=== PATIENT | male | born 1995 | race Caucasian/White ===

== ENCOUNTER 2017-11-29 16:09 | Emergency (ER) | END 2017-11-29 18:25 | disposition home or self-care (01) ==

== ENCOUNTER 2017-12-11 22:28 | Emergency (ER) | END 2017-12-12 01:13 | disposition home or self-care (01) ==

== ENCOUNTER → 2017-12-25 | Emergency (ER) | END | disposition home or self-care (01) ==

== ENCOUNTER 2018-10-07 09:13 | Emergency (ER) | payer MEDICAID ==
[~2018-10-07] VITALS: Wt 78.0 kg
[~2018-10-07 09:13] MED LIST: ACET500C5 PO; CYCL10TA7 PO; DIAZ5TAB PO; FAMO-96 PO; MED4DP PO; NAPR-985 PO; TRAM50TA2 PO
[2018-10-07] MEDS ORDERED: HYDROCODONE/APAP (5/325) TAB PO ONE (10:00)
[2018-10-07] MEDS ORDERED: IBUP-1542 PO (12:58)
[2018-10-07 13:08] VITALS: BP 127/75; PULSE 73; RESP 18
--- NOTE | 2018-10-08 00:08 | ERD ---
ER Documentation Chief Complaint Chief Complaint right rib pain after fall, hit side walk HPI 23-year-old male patient with no significant past medical history presents to ED complaining of right lower rib pain following. Rates his pain a 6 out of 10. States that when he breathes, it makes his pain worse. Denies any head or neck injuries. Denies any fever, chills, nausea, vomiting, diarrhea, neck stiffness. Denies any bloody stools, hematemesis, hemoptysis, shortness of breath, wheezing. ROS All systems reviewed and are negative except as per history of present illness. Medications Home Meds Active Scripts Ibuprofen* (Motrin*) 600 Mg Tab, 600 MG PO Q6, #30 TAB Prov:NAREN YUAN PA-C 10/07/18 Cyclobenzaprine Hcl* (Cyclobenzaprine Hcl*) 10 Mg Tablet, 10 MG PO TID, #20 TAB Prov:ERYN SILVA MD 12/25/17 Tramadol HCl (Tramadol HCl) 50 Mg Tablet, 50 MG PO Q4 PRN for PAIN, #20 TAB Prov:ERYN SILVA MD 12/25/17 Diazepam* (Valium*) 5 Mg Tablet, 5 MG PO Q8 for 3 Days, #9 TAB Prov:MAIKEL,RASHIDA 12/12/17 Famotidine* (Pepcid*) 20 Mg Tablet, 20 MG PO BID for 10 Days, #20 TAB Prov:MAIKEL,RASHIDA 12/12/17 Naproxen* (Naprosyn*) 500 Mg Tablet, 500 MG PO BID PRN for PAIN AND/OR INFLAMMATION for 10 Days, #20 TAB Prov:MAIKEL,RASHIDA 12/12/17 Methylprednisolone* (Medrol* DOSE PACK) 4 Mg/Dose-Pack Tab.ds.pk, 4 MG PO . DIRECTED for 5 Days, PACKET Prov:GIBRAN JOHNSON PA-C 11/29/17 Acetaminophen* (Tylophen*) 500 Mg Capsule, 1 CAP PO Q6H PRN for PAIN AND OR ELEVATED TEMP, #20 CAP Prov:GIBRAN JOHNSON PA-C 11/29/17 Allergies Allergies: Coded Allergies: No Known Allergy (Unverified , 11/29/17) PMhx/Soc Medical and Surgical Hx: pt denies Medical Hx, pt denies Surgical Hx History of Surgery: No Hx Neurological Disorder: No Hx Respiratory Disorders: No Hx Cardiac Disorders: No Hx Psychiatric Problems: No Hx Miscellaneous Medical Probl: No Hx Alcohol Use: No Hx Substance Use: No Hx Tobacco Use: No Smoking Status: Never smoker FmHx Family History: No diabetes, No coronary disease Physical Exam Vitals Vital Signs Date Temp Pulse Resp B/P (MAP) Pulse Ox O2 O2 Flow FiO2 Time Delivery Rate 10/07/18 98.3 73 18 127/75 99 Room Air 13:08 (92) 10/07/18 98.2 68 18 133/76 99 09:18 (95) Physical Exam Const: Dci-[id number]-[id number], well-nourished. In no acute distress. Head: Atraumatic, normocephalic Eyes: Normal Conjunctiva without injection. No purulent discharge. PERRL. EOMI ENT: Normal external ear. Ear canal without erythema. Tympanic membrane pearly gutierres without effusion or bulging. Nasal canal clear with normal turbinates. Moist oropharynx without tonsillar exudates. Non-erythematous pharynx. Uvula midline. No drooling. No trismus. Neck: Full range of motion. No meningismus. No cervical lymphadenopathy. Resp: Clear to auscultation bilaterally. No wheezing, rhonchi, rales, or crackles. No accessory muscle use. No retractions. Cardio: Regular rate and rhythm. No murmurs, rubs or gallops. Chest: Tenderness to palpation of the right lower ribs with no ecchymosis noted. Abd: Soft, slight tenderness palpation of the right upper abdomen, non distended. Normal bowel sounds. No palpable masses. No rebound tenderness. No guarding. Skin: No petechiae or rashes Back: No midline tenderness. No CVA tenderness. Ext: No cyanosis, or edema. Neur: Awake and alert. Psych: Normal Mood and Affect Results 24 hrs Current Medications Medications Dose Sig/Fan Start Time Status Last (Trade) Ordered Route PRN Stop Time Admin Dose Reason Admin 1 tab ONCE ONCE 10/07/18 DC 10/07/18 Acetaminophen PO 10:00 10:02 / 10/07/18 10:01 Hydrocodone Bitart ([place] (5/325)) Procedures/MDM 23-year-old male patient with no significant past medical history presents ED complaining of right rib pain, right upper quadrant pain that started after skateboarding and hitting his right side of his body onto the curb. Patient is afebrile and nontoxic-appearing. A chest x-ray, right rib x-ray, abdominal ultrasound was ordered to further evaluate patient. Patient was given [place] 5- 325 mg with improvement of his pain. CXR IMPRESSION: No acute disease. IMPRESSION: Unremarkable right upper quadrant abdominal ultrasound. No evidence of free fluid throughout the abdomen. Rib XRAY IMPRESSION: No acute fracture. IMPRESSION: Normal x-ray of the right knee. Patient sustained a rib contusion. No fractures noted. No free fluid noted on ultrasound. Low suspicion for pneumothorax, splenic/livery injury, acute myocardial infarction, pneumothorax, pericarditis, myocarditis, endocarditis, pneumonia, cardiac tamponade, pulmonary embolism, pleural effusion, AAA, aortic dissection, Boerhaave's syndrome, cardiac dysrhythmias,meningitis, intracranial bleed, seizure, stroke, TIA or other emergent conditions. Low suspicion for testicular torsion, gastritis, GERD, peptic ulcer disease, cholecystitis, choledocholithiasis, cholangitis, pancreatitis, appendicitis, bowel obstruction, ileus, volvulus, nephrolithiasis, pyelonephritis, hepatitis, perforated viscus, diverticulitis, abdominal hernia, acute abdomen, mesenteric ischemia or other emergent conditions. Diagnosis: Rib injury Discharge medications: Ibuprofen Follow up with primary care physician in 1-2 days. Instructed patient to return to the ED sooner for any worsening symptoms. Patient's questions were answered. Patient understood and agreed with discharge plan. Patient discharged stable. Departure Diagnosis: Primary Impression: Rib injury Condition: Stable Patient Instructions: Rib Contusion Referrals: [facility] Usted se arias hecho un examen mdico de control que le indica que no est en max condicin que requiera tratamiento urgente en el Departamento de Emergencia. Un estudio ms profundo y el tratamiento de collazo condicin pueden esperar sin ningn riesgo hasta que usted sea atendida/o en el consultorio de collazo mdico o max clnica. Es responsabilidad suya arreglar max kandace para el seguimiento del mima. MANEJO DE CONDICIONES NO URGENTES EN EL FUTURO 1) Si usted tiene un mdico de atencin primaria: Usted debera llamar a collazo mdico de atencin primaria antes de venir al departamento de emergencia. Despus de las horas de consultorio, collazo doctor o collazo asociado/a est disponible por telfono. El mdico o enfermero de marie en el servicio telefnico puede asesorarle por yana medio para atender el problema, o mima contrario se puede programar max kandace. 2) Si usted no tiene un mdico de atencin primaria: Llame al mdico o clnica de referencia que aparece abajo damian las horas de consultorio para hacer max kandace para que le vean. CLINICAS: [place] [id number] [phone] [facility]., [facility] [phone] [address] [facility]. [facility] [phone] [address] [facility]. [facility] [phone] [address] [facility]. [place] [id number] [phone] [facility]. [phone] [address] [facility]. [facility] () Usted se arias hecho un examen mdico de control que le indica que no est en max condicin que requiera tratamiento urgente en el Departamento de Emergencia. Un estudio ms profundo y el tratamiento de collazo condicin pueden esperar sin ningn riesgo hasta que usted sea atendida/o en el consultorio de collazo mdico o max clnica. Es responsabilidad suya arreglar max kandace para el seguimiento del mima. MANEJO DE CONDICIONES NO URGENTES EN EL FUTURO 1) Si usted tiene un mdico de atencin primaria: Usted debera llamar a collazo mdico de atencin primaria antes de venir al departamento de emergencia. Despus de las horas de consultorio, collazo doctor o collazo asociado/a est disponible por telfono. El mdico o enfermero de marie en el servicio telefnico puede asesorarle por yana medio para atender el problema, o mima contrario se puede programar max kandace. 2) Si usted no tiene un mdico de atencin primaria: Llame al mdico o condado institucions de referencia que aparece abajo damian las horas de consultorio para hacer max kandace para que le vean. SI USTED NO PUEDE PAGAR PARA ARTIE UN MEDICO puede ir a: [facility] [id number] [place], [place] [id number] [place] [address] [address] [place] [address] [facility] [address] [place] [address] [facility] [facility] [address] [place], [place] [id number] Additional Instructions: Llame al doctor MAANA y arturo max KANDACE PARA DENTRO DE 2-3 ORTIZ.Dgale a la secretaria que nosotros le instruimos hacer esta kandace.Avise o llame si collazo condicin se empeora antes de la kandace. Regresa aqui si peor o no mejor. NAREN YUAN PA-C Oct 08, 2018 00:08
== END 2018-10-07 13:09 | disposition home or self-care (01) ==
LOC: FTE 09:13
DX: S29.001A Unspecified injury of muscle and tendon of front wall of thorax, initial encounter (principal); R07.81 Pleurodynia; W01.198A Fall on same level from slipping, tripping and stumbling with subsequent striking against other object, initial encounter; Y92.9 Unspecified place or not applicable
CPT/HCPCS: 71045; 71100; 73562; 76705; Z7502; Z7610